=== PATIENT | female | born 1985 | race Caucasian/White ===

== ENCOUNTER 2019-10-29 02:43 | Emergency (ER) | payer SELFPAY ==
--- NOTE | 2019-10-29 04:05 | ED ---
Complex/Multi-Sys Presentation - HPI Summary HPI Summary: Patient is a 34 y/o F presenting to [facility] with complaints of chest and left arm pain, SOB, sore throat, decreased appetite, and difficulty sleeping. SOB is exacerbated by lying in supine position. On triage, pain is rated 2/10. Home medications and allergies are reviewed. - History Of Current Complaint Chief Complaint: EDShortnessOfBreath Time Seen by Provider: 10/29/19 02:57 Hx Obtained From: Patient Onset/Duration: Still Present Timing: Constant Location: Pain At: - chest, left arm Aggravating Factor(s): SOB aggravated by lying supine Associated Signs And Symptoms: Positive: SOB, Chest Pain, Other - positive - sore throat, decreased appetite, and difficulty sleeping. - Allergies/Home Medications Allergies/Adverse Reactions: Allergies Allergy/AdvReac Type Severity Reaction Status Date / Time No Known Allergies Allergy Verified 10/29/19 03:14 Home Medications: Home Medications NK [No Home Medications Reported] 10/29/19 [History Confirmed 10/29/19] PMH/Surg Hx/FS Hx/Imm Hx Sensory History: Denies: Hx Legally Blind, Hx Deafness Opthamlomology History: Denies: Hx Legally Blind EENT History: Denies: Hx Deafness Infectious Disease History: No Infectious Disease History: Denies: Traveled Outside the [place] in Last 30 Days - Family History Known Family History: Negative: Blood Disorder - Social History Alcohol Use: None Substance Use Type: Reports: None Smoking Status (MU): Never Smoked Tobacco Review of Systems Positive: Other - difficulty sleeping Positive: Sore Throat Positive: Chest Pain Positive: Shortness Of Breath Positive: Other - decreased appetite All Other Systems Reviewed And Are Negative: Yes Physical Exam - Summary Physical Exam Summary: Constitutional: Well-developed, Well-nourished, Alert. (-) Distressed Skin: Warm, Dry HENT: Normocephalic; Atraumatic Eyes: Conjunctiva normal Neck: Musculoskeletal ROM normal neck. (-) JVD, (-) Stridor, (-) Tracheal deviation Cardio: Tachycardic, Heart sounds normal; Intact distal pulses; The pedal pulses are 2+ and symmetric. Radial pulses are 2+ and symmetric. (-) Murmur Pulmonary/Chest wall: Effort normal. (-) Respiratory distress, (-) Wheezes, (-) Rales Abd: Soft, (-) tenderness, (-) Distension, (-) Guarding, (-) Rebound Musculoskeletal: (-) Edema Lymph: (-) Cervical adenopathy Neuro: Alert, Oriented x3 Psych: Anxious appearing Triage Information Reviewed: Yes Vital Signs On Initial Exam: Initial Vitals Pulse BP Pulse Ox 115 144/94 99 10/29/19 03:09 10/29/19 03:09 10/29/19 03:09 Vital Signs Reviewed: Yes Procedures - Sedation Patient Received Moderate/Deep Sedation with Procedure: No Diagnostics - Vital Signs Vital Signs Temp Pulse Resp BP Pulse Ox 10/29/19 03:39 80 19 131/76 99 10/29/19 03:14 98.1 F 110 16 144/94 100 10/29/19 03:09 115 144/94 99 - Laboratory Result Diagrams: 10/29/19 04:15 10/29/19 04:15 Lab Statement: Any lab studies that have been ordered have been reviewed, and results considered in the medical decision making process. - Radiology CXR Radiology Interpretation Completed By: ED Physician Summary of Radiographic Findings: CXR showed no acute process, pending official report. - EKG 0252 Cardiac Rate: Tachycardia - rate of 103 BPM EKG Rhythm: Sinus Tachycardia Summary of EKG Findings: EKG showed sinus tachycardia with rate of 103 BPM, nonspecific repolarization abnormality in diffuse leads. No STEMI. ED physician has reviewed and interpreted this EKG. Complex Multi-Symp Course/Dx Course Of Treatment: Patient is a 34 y/o F presenting to [facility] with complaints of chest and left arm pain, SOB, sore throat, decreased appetite, and difficulty sleeping. SOB is exacerbated by lying in supine position. On physical exam, patient is noted to be tachycardic and anxious-appearing. CXR showed NAD. EKG showed sinus tachycardia with rate of 103 BPM, nonspecific repolarization abnormality in diffuse leads. No STEMI. Bloodwork was within normal limits with exception of glucose 112. D-dimer was negative. Influenza A and B were negative. COVID-19 testing done and pending results. Second troponin was negative. Patient was discharged to home and will followup with PCP. - Diagnoses Provider Diagnoses: Chest pain, Anxiety Discharge ED - Sign-Out/Discharge Documenting (check all that apply): Patient Departure - discharge - Discharge Plan Condition: Stable Disposition: HOME Patient Education Materials: Chest Pain (ED), Anxiety (ED) Forms: COVID-19 Tested & Isolation Referrals: [facility], [Primary Care Provider] - 3 Days Additional Instructions: PLEASE RETURN TO ED FOR ANY NEW OR WORSENING SYMPTOMS. PLEASE FOLLOWUP WITH YOUR PRIMARY CARE PHYSICIAN WITHIN THREE DAYS. - Billing Disposition and Condition Condition: STABLE Disposition: Home - Attestation Statements Document Initiated by Araceli: Yes Documenting Scribe: VIVIAN WILLIAMSON Provider For Whom Jasmeetibkendrick is Documenting (Include Credential): MARYA HARRIS DO Scribkendrick Attestation: VIVIAN Henning scribed for MARYA HARRIS DO on 10/31/19 at 0710. Scribe Documentation Reviewed: Yes Provider Attestation: The documentation as recorded by the VIVIAN hernandez accurately reflects the service I personally performed and the decisions made by MARYA barber DO Status of Scribkendrick Document: Viewed
[2019-10-29 04:43] LABS: ABS Lymphocytes 1.1 10^3/ul (1.0-4.8); ABS Monocytes 0.6 10^3/ul (0-0.8); ABS Neutrophils 4.3 10^3/ul (1.5-7.7); Eosinophil % 0.3 %; Hematocrit 40 % (35-47); Hemoglobin 13.5 g/dL (12.0-16.0); Lymphocyte % 17.8 %; Mean Corpuscular HGB Conc 34 g/dL (31-36); Mean Corpuscular Hemoglobin 31 pg (27-31); Mean Corpuscular Volume 90 fL (80-97); Mean Platelet Volume 10.1 fL (7.4-10.4); Nucleated Red Blood Cells % 0.1; Platelet Count 211 10^3/uL (150-450); Red Blood Count 4.38 10^6 /uL (3.70-4.87); Red Cell Distribution Width 15 % (10-15); White Blood Count 5.9 10^3/uL (3.5-10.8)
[2019-10-29 04:49] LABS: Influenza A Molecular Negative (Negative); Influenza B Molecular Negative (Negative)
[2019-10-29 05:03] LABS: Albumin 4.4 g/dL (3.2-5.2); Albumin/Globulin Ratio 1.8 (1-3); BUN/Creatinine Ratio 17.7 (8-20); Calcium 9.9 mg/dL (8.6-10.3); EGFR Non-African American 111.6 (>60); Globulin 2.5 g/dL (2-4); Potassium 4.3 mmol/L (3.5-5.0); Total Bilirubin 0.3 mg/dL (0.2-1.0); Total Protein 6.9 g/dL (6.4-8.9)
[2019-10-29 07:14] VITALS: BP 123/74
== END 2019-10-29 07:37 | disposition home or self-care (01) ==
LOC: ED 02:43
DX: R07.9 Chest pain, unspecified (principal); F41.9 Anxiety disorder, unspecified
CPT/HCPCS: 36415; 71045; 80053; 84484; 85025; 85379; 93005; 99283; U0002